=== PATIENT | male | born 1955 | race Caucasian/White ===

== ENCOUNTER → 2020-01-25 | Outpatient (CLI) | payer MEDICARE, OTHER ==
[~2020-01-25] MED LIST: ACET-1600 PO; ALLO100T30 PO; AMIT25TA PO; AMLO1POW2; CYCL-259 PO; ELAVIL; FINASTERIDE PO; LISI1POW; METF100P3; METF850T10 PO; METH500T97; METH750T87 PO; METO-95 PO; METO25TA91 PO; MINO100T2 PO; MORP-29 PO; MORP-30 PO; MORP-52 PO; MORP100C15; MULT-516 PO; OMEP-110 PO; OXYC5CAP2; PREG100C PO; REGADENOSON 0.4 MG/5 ML SYRINGE ONE; ROSU10TA2; ROSU10TA2 PO; TAMS-11 PO; TESTOSTERONE IM; TRAM-47; TRAM-47 PO
== END | disposition home or self-care (01) ==
LOC: CFH 12:27
PROVIDERS: ATTEND Internal Medicine Cardiovascular Disease
DX: R93.1 Abnormal findings on diagnostic imaging of heart and coronary circulation (principal); R55 Syncope and collapse; I10 Essential (primary) hypertension
CPT/HCPCS: 78452; 93017; A9502; J2785